=== PATIENT | male | born 1995 | race Caucasian/White ===

== ENCOUNTER → 2019-07-22 | Outpatient (CLI) | payer OTHER ==
[~2019-07-22] MED LIST: ADVIL100 M2 PO; Z.0.ADDERALL 10 MG10 PO
--- NOTE | 2019-07-26 12:57 | Diagnostic Imaging Report ---
#[id number] - USBRELIMLT ULTRASOUND OF THE LEFT BREAST : 07/22/2019 Comparison is made to exam dated: 07/22/2019 mammogram - [facility] [place]. Color flow and real-time ultrasound were performed on the left breast. Cordova scale images of the real-time examination were reviewed. No abnormalities were seen sonographically in the left breast. IMPRESSION: NEGATIVE There is no sonographic evidence of malignancy. Follow-up with ACR/ACS guidelines. BELÉN olivia/maritza:07/23/2019 15:40:14 Medical Radiation Dosimetrist: KENYON OSWALD [facility], [facility] [place] [facility] letter sent: Normal Exam Ultrasound BI-RADS: 1 Negative
--- NOTE | 2019-07-26 12:57 | Diagnostic Imaging Report ---
#[id number] - [id number] #MALE BILATERAL DIGITAL DIAGNOSTIC MAMMOGRAM WITH CAD: 07/22/2019 No prior exams were available for comparison. Current study was also evaluated with a Computer Aided Detection (CAD) system. No significant masses, calcifications, or other findings are seen in either breast. There is heterogenously dense fibroglandular breast tissue bilaterally, consistent with gynecomastia. IMPRESSION: BENIGN Heterogenously dense fibroglandular breast tissue bilaterally, consistent with gynecomastia. There is no mammographic evidence of malignancy. Follow-up with ACR/ACS guidelines. The patient will be notified by letter of the results. BELÉN JOHNSON M.D. kw/:07/23/2019 15:39:08 Screen Printing Supervisor: Kaci MEYERS)([place]), [facility] letter sent: Normal Exam Mammogram BI-RADS: 2 Benign
--- NOTE | 2019-07-26 12:57 | Diagnostic Imaging Report ---
#[id number] - USBRELIMRT ULTRASOUND OF THE RIGHT BREAST : 07/22/2019 Comparison is made to exam dated: 07/22/2019 mammogram - [facility]. Color flow and real-time ultrasound were performed on the right breast. Cordova scale images of the real-time examination were reviewed. No abnormalities were seen sonographically in the right breast. IMPRESSION: NEGATIVE There is no sonographic evidence of malignancy. Follow-up with ACR/ACS guidelines. BELÉN olivia/maritza:07/23/2019 15:40:34 Project Estimator: KENYON OSWALD [facility], [facility] letter sent: Normal Exam Ultrasound BI-RADS: 1 Negative
== END ==
LOC: MAMMO 12:37
PROVIDERS: ATTEND Family Medicine
DX: N63.20 Unspecified lump in the left breast, unspecified quadrant (principal); N63.10 Unspecified lump in the right breast, unspecified quadrant
CPT/HCPCS: 77066